=== PATIENT | male | born 1985 | race Caucasian/White ===

== ENCOUNTER 2017-08-31 14:17 | Outpatient (CLI) | payer BC ==
--- NOTE | 2017-08-31 16:13 | ULT ---
ULTRASOUND SCROTUM TESTICLES DOPPLER DUPLEX: 08/31/17 HISTORY: Testicular pain, N50.8. 31-year-old male with right scrotal pain after trauma to the right groin one week ago. TECHNIQUE: Montaño-scale evaluation of intrascrotal contents. Color flow Doppler and spectral waveform analysis of the testicles. FINDINGS: Right testicle: 3.8 x 2.4 x 2.1 cm. Left testicle: 4.3 x 2.4 x 2.1 cm. Right epididymal head: 1.3 x 0.7 x 0.7 cm. Left epididymal head: 1.3 x 0.9 x 0.9 cm. Incidental finding of a 0.7 x 0.3 x 0.5 cm cyst at the left epididymal head. Testicular echogenicity: Within normal limits bilaterally. No laceration or fracture. Numerous tiny, punctate echogenic foci scattered in the bilateral testicular parenchyma, representing microlithiasis , was better visualized on the previous ultrasound of 10/14/15, and appears less conspicuous on the cu rrent study, probably due to technical differences. Testicular blood flow: Bilaterally symmetrical. Intratesticular mass: No solid mass. Tiny 0.3 cm intraparenchymal cyst in the right testicle. Hydrocele: None. Incidentally, there is an approximately 0.7 x 0.3 cm extratesticular cystic structur e abutting the medial aspect of the left testicle. This was present on previous ultrasound of 10/14/15 . Varicocele: None. IMPRESSION: 1. No evidence of hematocele or testicular laceration. 2. Bilateral testicular microlithiasis. 3. Other minor findings as mentioned above. MELANIE Velez POS: [facility]
== END 2017-08-31 14:18 | disposition home or self-care (01) ==
LOC: ULT 14:17
PROVIDERS: ATTEND Urology
DX: N50.819 Testicular pain, unspecified (principal); N50.89 Other specified disorders of the male genital organs
CPT/HCPCS: 76870; 93976